=== PATIENT | male | born 1950 ===

== ENCOUNTER 2021-02-10 15:23 | Observation (INO) ==
[2021-02-10] MEDS ORDERED: Acetaminophen 325 MG TABLET PO PRN ×2 (17:02→21:36)
[2021-02-10] MEDS ORDERED: Ondansetron 4 MG/2 ML VIAL IVP PRN ×2 (17:02→21:36)
[2021-02-10] MEDS ORDERED: Naloxone 0.4 MG/ML INJ IVP PRN ×2 (17:02→21:36)
[2021-02-10] MEDS ORDERED: *HR* OxyCODONE Immed Rel 5 MG TABLET PO PRN ×2 (17:02→21:36)
[2021-02-10] MEDS ORDERED: *HR* HYDROcodone/Acet 5/325 mg TABLET PO PRN ×2 (17:02→21:36)
[2021-02-10] MEDS ORDERED: 0.9 % Sodium Chloride 1,000 ML IVC SCH ×2 (17:30→21:36)
[2021-02-10] MEDS ORDERED: Ropivacaine/PF 0.5% 30 ML VIAL ONE (17:35)
[2021-02-10] MEDS ORDERED: *HR* Midazolam HCl 2 MG/2 ML VIAL ONE (17:46)
[2021-02-10] MEDS ORDERED: *HR* Propofol 200 MG/20 ML VIAL IVP ONE (17:46)
[2021-02-10] MEDS ORDERED: *HR* FentaNYL (PF) 100 MCG/2 ML VIAL ONE (17:46)
[2021-02-10] MEDS ORDERED: *HR* HYDROmorphone PF 0.5 MG/0.5 ML SYRINGE IVP PRN (18:32)
[2021-02-10] MEDS ORDERED: Ondansetron 4 MG/2 ML VIAL ONE (18:53)
[2021-02-11 03:53] VITALS: TEMP 98.5
[2021-02-11] MEDS ORDERED: *HR* Heparin 5,000 UNIT/ML VIAL SQ SCH (06:00)
[2021-02-11 06:10] LABS: Basophils % 0.1 %; Hematocrit 43.5 % (37.5-50.1); Hemoglobin 14.6 g/dL (12.9-16.9); Immature Granulocytes % 0.4 % (0-4); Lymphocytes # 0.7 K/mcL (0.6-4.6); Mean Corpuscular HGB Conc 33.6 g/dL (31.6-35.5); Mean Corpuscular Hemoglobin 30.6 pg (28.0-33.3); Mean Corpuscular Volume 91.2 fL (83.0-100.0); Mean Platelet Volume 10.8 fL (9.4-12.4); Monocytes # 0.2 K/mcL (0.0-1.3); Monocytes % 2.3 %; Neutrophils # 9.1 K/mcL (1.6-8.9); Platelet Count 234 K/mcL (140-400); Red Blood Count 4.77 M/mcL (4.19-5.50); Red Cell Distribution Width 13.5 % (11.5-14.5); Segmented Neutrophils % 90.2 %; White Blood Count 10.1 K/mcL (4.3-11.1)
[2021-02-11 06:43] LABS: BUN/Creatinine Ratio 18 (6-26); Blood Urea Nitrogen 23 mg/dL (8-23); Calcium 8.8 mg/dL (8.6-10.3); Carbon Dioxide 22 mEq/L (23-29); Chloride 105 mEq/L (98-107); Glucose 210 mg/dL (70-105); Osmolality,Calculated 292 (280-300); Potassium 4.6 mEq/L (3.5-5.1); Sodium 136 mEq/L (136-145); eGFR For African Americans > 60 (> 60); eGFR For Non-African Americans 55 (> 60)
[2021-02-11] MEDS: *HR* Heparin 5,000 UNIT/ML VIAL SQ SCH ×2 (06:49→14:52)
[2021-02-11 10:38] VITALS: BP 121/67; PULSE 97; O2SAT 94
== END 2021-02-11 16:07 | disposition home or self-care (01) ==
LOC: 3NENU → SUATTDRO 15:23
PROVIDERS: ADMIT Internal Medicine; ATTEND Internal Medicine